=== PATIENT | female | born 1940 | race Caucasian/White ===

== ENCOUNTER → 2016-08-27 | Outpatient (CLI) | payer MEDICARE, OTHER | END | disposition home or self-care (01) | LOC: GMAB 11:44 | PROVIDERS: ATTEND Family Medicine | DX: E89.0 Postprocedural hypothyroidism (principal) ==

== ENCOUNTER 2016-09-09 09:49 | Emergency (ER) | payer MEDICARE, OTHER ==
--- NOTE | 2016-09-09 10:27 | ED.PDOC ---
History of Present Illness - General Chief Complaint: Respiratory Problem Stated Complaint: cough, fever Time Seen by Provider: 09/09/16 10:17 Source: patient, family Exam Limitations: no limitations - History of Present Illness Initial Comments: Patient presents with worsening cough and congestion for one week. Was diagnosed with a URI one week ago and just finished a Z-pack. She says her cough has gotten worse and she had a fever last night. No sick contacts. Had [place] two years ago. Non-smoker. No other complaints. Timing/Duration: 1 week Severity: moderate Improving Factors: nothing Worsening Factors: nothing Associated Symptoms: fever/chills Allergies/Adverse Reactions: Allergies Cefaclor [From Ceclor] Allergy (Verified 09/09/16 10:04) Ciprofloxacin [From Cipro] Allergy (Verified 09/09/16 10:04) Codeine Allergy (Verified 09/09/16 10:04) Home Medications: Ambulatory Orders Levothyroxine Sodium [Synthroid] 0.1 mg PO 0700 07/06/14 Medroxyprogesterone Acetate [Medroxyprogesterone Aceta] 1.25 mg PO DAILY Apixaban [Eliquis] 5 mg PO BID 07/20/14 Carvedilol [Coreg] 6.25 mg PO BID 07/20/14 Estradiol 0.5 mg PO DAILY 07/20/14 Mometasone Furoate Nasal [place] [Nasonex Nasal [place]] 1 spray BNAS DAILY PRN Furosemide [Lasix Tab] 20 mg PO QAM #30 tab 07/21/14 Potassium Chloride Tab [Micro-K] 10 meq PO QAM #30 tab 07/21/14 Amoxicillin & Pot Clavulanate [Augmentin] 875 mg PO BID #14 tab 09/09/16 Review of Systems - Review of Systems Constitutional: States: see HPI EENTM: States: no symptoms reported Respiratory: States: see HPI Cardiology: States: no symptoms reported Gastrointestinal/Abdominal: States: no symptoms reported Genitourinary: States: no symptoms reported Musculoskeletal: States: no symptoms reported Skin: States: no symptoms reported Neurological: States: no symptoms reported Endocrine: States: no symptoms reported Hematologic/Lymphatic: States: no symptoms reported Past Medical History (General) - Patient Medical History Hx Seizures: No Hx Stroke: No Hx Dementia: No Hx Asthma: No Hx of COPD: No Hx Cardiac Disorders: Yes - [place],Atrial Fib,Takotsubo Cardiomyopathy Hx Congestive Heart Failure: Yes Hx Pacemaker: No Hx Hypertension: No Hx Thyroid Disease: Yes Hx Diabetes: No Hx Gastroesophageal Reflux: No Hx Renal Disease: No Hx Cancer: No Hx of HIV: No Hx Hepatitis C: No Hx MRSA: No Surgical History: other - Vaccination History Hx Tetanus, Diphtheria Vaccination: No Hx Influenza Vaccination: No Hx Pneumococcal Vaccination: No - Social History Hx Tobacco Use: No Hx Chewing Tobacco Use: No Hx Alcohol Use: No Hx Substance Use: No Hx Substance Use Treatment: No Hx Depression: No Hx Physical Abuse: No Hx Emotional Abuse: No Hx Suspected Abuse: No - Activities of Daily Living Hospice Agency (if applicable):: None - Female History Patient is a Female of Child Bearing Age (10 -59 yrs old): No Patient : No Family Medical History - Family History Mother Family History: Unknown Living Status: Age at (years of age): 89 Cause of : stroke/heart attack Hx Family Stroke: Yes Hx Cardiac Disease: Yes Father Family History: Unknown Living Status: Hx Cardiac Disease: Yes Physical Exam - Physical Exam General Appearance: Alert Ears, Nose, Throat: normal ENT inspection Neck: non-tender, full range of motion, supple Respiratory: other - Diffuse rhonchi greater on the left side. No wheezes. + scattered rales Cardiovascular/Chest: regular rate, rhythm Gastrointestinal/Abdominal: normal bowel sounds, non tender, soft Back Exam: no CVA tenderness Skin Exam: normal color Lymphatic: no adenopathy Progress - Progress Progress: 09/09/16 12:05 CXR showed no acute disease. CRP 1.2. Patient given augmentin 875 mg po bid x 7 days for subacute bronchitis. She declined any cough medications. Laboratory Tests 09/09/16 10:36 WBC 6.3 RBC 4.54 Hgb 14.2 Hct 42.2 MCV 92.9 MCH 31.3 H MCHC 33.7 RDW 13.6 Plt Count 152 MPV 8.5 Absolute Neuts (auto) 4.30 Absolute Lymphs (auto) 1.30 Absolute Monos (auto) 0.60 Absolute Eos (auto) 0.20 Absolute Basos (auto) 0.00 Neutrophils % 67.7 Lymphocytes % 20.7 Monocytes % 8.8 Eosinophils % 2.4 Basophils % 0.4 Sodium 136 Potassium 3.5 L Chloride 100 L Carbon Dioxide 29 Anion Gap 10.5 L BUN 13 Creatinine 1.06 BUN/Creatinine Ratio 12.3 Random Glucose 95 Serum Osmolality 271.9 L Calcium 8.1 L Total Bilirubin 0.6 AST 23 ALT 17 Alkaline Phosphatase 48 C-Reactive Protein 1.2 H B-Natriuretic Peptide 252.0 H* Serum Total Protein 6.6 Albumin 3.6 Globulin 3.0 Albumin/Globulin Ratio 1.2 Negative rapid strep and influenza. 09/09/16 12:08 Patient said she was not allergic to penicillin. Departure - Departure Clinical Impression: Bronchitis Disposition: Discharge to Home or Self Care Condition: Good Departure Forms: ED Discharge - Pt. Copy, Patient Portal Self Enrollment Diet: resume usual diet Activity: increase activity as tolerated Prescriptions: Amoxicillin & Pot Clavulanate [Augmentin] 875 mg PO BID #14 tab Home Medications: Ambulatory Orders Levothyroxine Sodium [Synthroid] 0.1 mg PO 0700 07/06/14 Medroxyprogesterone Acetate [Medroxyprogesterone Aceta] 1.25 mg PO DAILY Apixaban [Eliquis] 5 mg PO BID 07/20/14 Carvedilol [Coreg] 6.25 mg PO BID 07/20/14 Estradiol 0.5 mg PO DAILY 07/20/14 Mometasone Furoate Nasal [place] [Nasonex Nasal [place]] 1 spray BNAS DAILY PRN Furosemide [Lasix Tab] 20 mg PO QAM #30 tab 07/21/14 Potassium Chloride Tab [Micro-K] 10 meq PO QAM #30 tab 07/21/14 Amoxicillin & Pot Clavulanate [Augmentin] 875 mg PO BID #14 tab 09/09/16 Additional Instructions: Take medications as prescribed. Return to your regular doctor or the ER if symptoms progress or have not resolved in one week.
--- NOTE | 2016-09-09 11:43 | RAD ---
PROCEDURE: Chest,2 Views CLINICAL HISTORY: cough with hemoptysis INDICATION: Same as above COMPARISON: 08/05/2014 TECHNIQUE: PA and and lateral chest radiographs were obtained. FINDINGS: Bilateral breast soft tissue artifact is projected over the bilateral mid and lower chest on the frontal projection There are no discrete airspace infiltrates, pneumothoraces or pleural effusions. The pulmonary vascularity is normal The cardiomediastinal silhouette is stable IMPRESSION: There is no acute pleural-parenchymal process seen in the imaged lung [place]. Place of interpretation: [facility]. Electronically signed by: Pedro Luis Duff MD 09/09/2016 11:42 AM JEWELRY DESIGNER
[2016-09-09 12:23] VITALS: BP 127/78; TEMP 101.8; O2SAT 90
== END 2016-09-09 12:24 | disposition home or self-care (01) ==
LOC: ER 09:49
DX: J40 Bronchitis, not specified as acute or chronic (principal); I48.91 Unspecified atrial fibrillation; I25.2 Old myocardial infarction; E07.9 Disorder of thyroid, unspecified; Z88.6 Allergy status to analgesic agent; Z88.3 Allergy status to other anti-infective agents; Z79.899 Other long term (current) drug therapy; Z82.3 Family history of stroke

== ENCOUNTER → 2017-09-02 | Outpatient (CLI) | payer MEDICARE, OTHER | LOC: GMAB 12:38 | PROVIDERS: ATTEND Family Medicine | DX: E03.9 Hypothyroidism, unspecified (principal) ==

== ENCOUNTER 2018-01-12 06:29 | Emergency (ER) | payer MEDICARE, OTHER ==
[2018-01-12 06:55] VITALS: BP 122/78; TEMP 98; O2SAT 96
[2018-01-12] MEDS ORDERED: NITROFURANTOIN MONOHYDRATE MAC 100 MG CAP PO ONE (06:57)
--- NOTE | 2018-01-12 07:00 | ED.PDOC ---
History of Present Illness - General Chief Complaint: Problem Stated Complaint: possible UTI Time Seen by Provider: 01/12/18 06:57 Source: patient, Vital Signs reviewed Exam Limitations: no limitations - History of Present Illness Initial Comments: Saturday morning she begaon developing symptoms of dysuria similar to UTIs she gets about once a year. She started taking Azo yesterday. She thinks she has seen some blood in her urine. She denies fever, back pain or renal disease. She does not recall what abx she has been given before. Timing/Duration: other - see above Quality: moderate, sharpness Onset Location: suprapubic Radiation: none Improving Factors: other - Azo helps somewhat Worsening Factors: nothing Associated Symptoms: abdominal pain - suprapubic only, urinary frequency Allergies/Adverse Reactions: Allergies Cefaclor [From Ceclor] Allergy (Verified 09/09/16 10:04) Ciprofloxacin [From Cipro] Allergy (Verified 09/09/16 10:04) Codeine Allergy (Verified 09/09/16 10:04) Home Medications: Ambulatory Orders Levothyroxine Sodium [Synthroid] 0.1 mg PO 0700 07/06/14 Medroxyprogesterone Acetate [Medroxyprogesterone Aceta] 1.25 mg PO DAILY Apixaban [Eliquis] 5 mg PO BID 07/20/14 Carvedilol [Coreg] 6.25 mg PO BID 07/20/14 Estradiol 0.5 mg PO DAILY 07/20/14 Mometasone Furoate Nasal [place] [Nasonex Nasal [place]] 1 spray BNAS DAILY PRN Furosemide Tab [Lasix Tab] 20 mg PO QAM #30 tab 07/21/14 Potassium Chloride Tab [Micro-K] 10 meq PO QAM #30 tab 07/21/14 Amoxicillin & Pot Clavulanate [Augmentin] 875 mg PO BID #14 tab 09/09/16 Nitrofurantoin Monohydrate Mac [Macrobid] 100 mg PO BID 7 Days #14 capsule 01/12 Review of Systems - Review of Systems Constitutional: States: see HPI. Denies: fever Respiratory: States: no symptoms reported Gastrointestinal/Abdominal: States: see HPI. Denies: diarrhea, nausea, vomiting Genitourinary: States: see HPI, dysuria, frequency, hematuria Musculoskeletal: States: see HPI. Denies: back pain Skin: States: no symptoms reported Neurological: States: no symptoms reported Past Medical History (General) - Patient Medical History Hx Seizures: No Hx Stroke: No Hx Dementia: No Hx Asthma: No Hx of COPD: No Hx Cardiac Disorders: Yes - [place],Atrial Fib,Takotsubo Cardiomyopathy Hx Congestive Heart Failure: Yes Hx Pacemaker: No Hx Hypertension: No Hx Thyroid Disease: Yes Hx Diabetes: No Hx Gastroesophageal Reflux: No Hx Renal Disease: No Hx Cancer: No Hx of HIV: No Hx Hepatitis C: No Hx MRSA: No Surgical History: other - Vaccination History Hx Tetanus, Diphtheria Vaccination: No Hx Influenza Vaccination: No Hx Pneumococcal Vaccination: No - Social History Hx Tobacco Use: No Hx Chewing Tobacco Use: No Hx Alcohol Use: Yes - occ. Hx Substance Use: No Hx Substance Use Treatment: No Hx Depression: No Hx Physical Abuse: No Hx Emotional Abuse: No Hx Suspected Abuse: No - Female History Patient : No Family Medical History - Family History Mother Family History: Unknown Living Status: Age at (years of age): 89 Cause of : stroke/heart attack Hx Family Stroke: Yes Hx Cardiac Disease: Yes Father Family History: Unknown Living Status: Hx Cardiac Disease: Yes Physical Exam - Physical Exam General Appearance: Alert, Comfortable, No apparent distress Neck: supple Cardiovascular/Respiratory: no respiratory distress Gastrointestinal/Abdominal: soft, tenderness - +/- suprapubic pain Neurologic: alert, normal mood/affect, oriented x 3 Skin Exam: normal color Progress - Progress Progress: 01/12/18 07:08 her symptoms are c/w with UTI & she has had them many times so I will defer a UA Departure - Departure Clinical Impression: Urinary tract infection Qualifiers: Urinary tract infection type: acute cystitis Hematuria presence: with hematuria Qualified Code(s): N30.01 - Acute cystitis with hematuria Disposition: Discharge to Home or Self Care Condition: Excellent Departure Forms: ED Discharge - Pt. Copy, Patient Portal Self Enrollment Instructions: DI for Urinary Tract Infection (UTI) Referrals: Rene Pollard MD [Primary Care Provider] - 01/15/18 (only if still having symptoms) Prescriptions: Nitrofurantoin Monohydrate Mac [Macrobid] 100 mg PO BID 7 Days #14 capsule Home Medications: Ambulatory Orders Levothyroxine Sodium [Synthroid] 0.1 mg PO 0700 07/06/14 Medroxyprogesterone Acetate [Medroxyprogesterone Aceta] 1.25 mg PO DAILY Apixaban [Eliquis] 5 mg PO BID 07/20/14 Carvedilol [Coreg] 6.25 mg PO BID 07/20/14 Estradiol 0.5 mg PO DAILY 07/20/14 Mometasone Furoate Nasal [place] [Nasonex Nasal [place]] 1 spray BNAS DAILY PRN Furosemide Tab [Lasix Tab] 20 mg PO QAM #30 tab 07/21/14 Potassium Chloride Tab [Micro-K] 10 meq PO QAM #30 tab 07/21/14 Amoxicillin & Pot Clavulanate [Augmentin] 875 mg PO BID #14 tab 09/09/16 Nitrofurantoin Monohydrate Mac [Macrobid] 100 mg PO BID 7 Days #14 capsule 01/12
== END 2018-01-12 07:17 | disposition home or self-care (01) ==
LOC: ER 06:29
DX: N30.01 Acute cystitis with hematuria (principal); I25.2 Old myocardial infarction; I48.91 Unspecified atrial fibrillation; I50.9 Heart failure, unspecified; E07.9 Disorder of thyroid, unspecified; Z87.440 Personal history of urinary (tract) infections; Z79.899 Other long term (current) drug therapy; Z88.1 Allergy status to other antibiotic agents; Z88.5 Allergy status to narcotic agent

== ENCOUNTER → 2018-09-08 | Outpatient (CLI) | payer MEDICARE, OTHER | LOC: GMAE 10:54 | PROVIDERS: ATTEND Family Medicine | DX: E03.9 Hypothyroidism, unspecified (principal) ==